=== PATIENT | male | born 1950 | race Caucasian/White ===

== ENCOUNTER 2018-08-12 14:40 | Emergency (ER) | payer MEDICAID, OTHER ==
[~2018-08-12] VITALS: Ht 177.8 cm; Wt 86.4 kg
[~2018-08-12 14:40] MED LIST: BENA40TA8 PO; DIGO250T77 PO; FLEC100T2 PO; HYDR25TA4 PO; WARF-55 PO; WARF-65 PO
[2018-08-12 15:00] VITALS: BP 145/86
[2018-08-13] MEDS ORDERED: DOXY100C43 PO (13:45)
== END 2018-08-12 21:08 | disposition left against medical advice (07) ==
LOC: ER 14:40
DX: M79.661 Pain in right lower leg (principal); Z53.21 Procedure and treatment not carried out due to patient leaving prior to being seen by health care provider; W22.8XXA Striking against or struck by other objects, initial encounter; Y93.89 Activity, other specified; Y92.89 Other specified places as the place of occurrence of the external cause; Y99.8 Other external cause status

== ENCOUNTER 2019-02-13 00:57 | Inpatient (IN) | payer MEDICARE, OTHER ==
[~2019-02-13] VITALS: Ht 177.8 cm; Wt 88.6 kg
[2019-02-13] VITALS (23 sets, daily range): BP systolic 108–183; BP diastolic 58–97
[2019-02-13] MEDS ORDERED: normal saline 1000ml 1,000 ML IVB ONE (01:08)
[2019-02-13] MEDS ORDERED: ondansetron/PF 4mg/2ml inj IV STA (01:08)
[2019-02-13] MEDS ORDERED: morphine 4 MG/ML inj SYRINge IV STA (01:09)
--- NOTE | 2019-02-13 01:09 | NUR ---
spoke to dr solano about firm abdomen and the pain pt. in.
[2019-02-13] MEDS ORDERED: CefTRIAXone 2gm/D5W 50ml 50 ML IV ONE ×2 (01:25→02:35)
[2019-02-13] MEDS ORDERED: azithromycin/NS 500mg/250ml 250 ML IV ONE (01:25)
[2019-02-13] MEDS ORDERED: nitroGLYCERIN 0.4mg/hour patch TD ONE (01:35)
[2019-02-13] MEDS ORDERED: morphine 4 MG/ML inj SYRINge IV ONE (01:35)
[2019-02-13 01:40] LABS: ALANINE AMINOTRANSFERASE 333 U/L (12-78); ALBUMIN 3.7 G/DL (3.4-5.0); ALKALINE PHOSPHATASE 154 IU/L (46-116); ANION GAP 11 (8-16); ASPARTATE AMINO TRANSFERASE 271 U/L (10-37); BILIRUBIN,TOTAL 1.5 MG/DL (0.1-1.0); BLOOD UREA NITROGEN 13 MG/DL (7-18); BUN/CREATININE RATIO 15.3 (5.4-32.0); CHLORIDE 106 MMOL/L (99-107); CREATININE 0.85 MG/DL (0.60-1.10); GLUCOSE 191 MG/DL (70-104); LIPASE 153 U/L (73-393); SODIUM 141 MMOL/L (135-145); TOTAL PROTEIN 7.3 G/DL (6.4-8.2); eGFR 90 ML/MIN
[2019-02-13] MEDS ORDERED: iohexol 350MG/ML 100ml bottle IV ONE (01:41)
[2019-02-13] MEDS ORDERED: ATOR40TA PO (03:21)
[2019-02-13 03:22] LABS: BASOPHILS # (AUTO) 0.1 X10'3 (0-0.2); BASOPHILS % (AUTO) 0.9 % (0-1); EOSINOPHILS % (AUTO) 0.6 % (0-6); HEMATOCRIT 48.8 % (42.0-52.0); HEMOGLOBIN 16.4 g/dl (14.0-17.9); LYMPHOCYTES # (AUTO) 1.2 X10'3 (1.1-4.8); LYMPHOCYTES % (AUTO) 15.5 % (21-51); MEAN CORPUSCULAR HEMOGLOBIN 31.2 PG (27.0-31.0); MEAN CORPUSCULAR HGB CONC 33.6 g/dL (33.0-36.5); MEAN CORPUSCULAR VOLUME 92.8 FL (78-98); MEAN PLATELET VOLUME 10.2 FL (7.4-10.4); MONOCYTES # (AUTO) 0.5 X10'3 (0-0.9); MONOCYTES % (AUTO) 7.3 % (2-12); NEUTROPHILS # (AUTO) 5.7 X10'3 (1.8-7.7); NEUTROPHILS % (AUTO) 75.7 % (42-75); PLATELET COUNT 105 X10'3 (140-440); RED BLOOD COUNT 5.26 X10'6 (4.70-6.10); RED CELL DISTRIBUTION WIDTH 14.5 % (11.5-14.5); WHITE BLOOD COUNT 7.5 X10'3 (4.5-11.0)
[2019-02-13] MEDS: normal saline 1000ml 1,000 ML IV SCH ×3 (03:48→23:34)
[2019-02-13] MEDS ORDERED: potassium Cl 20 mEq SR tablet PO PRN ×2 (03:50)
[2019-02-13] MEDS ORDERED: acetaminophen 650mg rectal suppository RC PRN (03:50)
[2019-02-13] MEDS ORDERED: ondansetron/PF 4mg/2ml inj IV PRN (03:50)
[2019-02-13] MEDS ORDERED: potassium CL 10mEq/100ml bag 100 ML IV PRN ×2 (03:50)
[2019-02-13] MEDS ORDERED: magnesium 2GM in 50ml NS 50 ML IV PRN (03:50)
[2019-02-13] MEDS ORDERED: morphine 2 MG/ML inj. syringe IV PRN ×2 (03:50)
[2019-02-13] MEDS ORDERED: magnesium 4gm in 100ml NS 100 ML IV PRN (03:50)
[2019-02-13] MEDS ORDERED: magnesium Cl slow-release 64mg tablet PO PRN (03:50)
--- NOTE | 2019-02-13 06:31 | NUR ---
Day shift UMBERTO Evans will be taking report on patient.
[2019-02-13] MEDS: K and/or MAG REPLACEMENT MC SCH (07:16)
[2019-02-13] MEDS: CefTRIAXone/D5W-Rocephin 1gm 50 ML IV SCH (07:34)
[2019-02-13] MEDS ORDERED: pantoprazole 40 MG vial IV SCH (08:00)
[2019-02-13] MEDS ORDERED: OMEG1CAP13 PO (09:40)
[2019-02-13] MEDS: ESOMEPRAZOLE 40 MG VIAL IV SCH (09:42)
--- NOTE | 2019-02-13 10:00 | NUR ---
patient stated not being able to void since midnight. Patient complains of feeling the need to urinate but not being able to. PCT bladder scanned patient and 600 mL of urine is present in bladder. informed and an order for one time straight cath was given. Attempt to straight cath was made. Patient complained of extreme pain during. catheter was pulled back slightly and readvanced and patient still complains of pain. No urine return. Charge nurse informed and will attempt.
[2019-02-13 10:19] LABS: ALANINE AMINOTRANSFERASE 541 U/L (12-78); ALKALINE PHOSPHATASE 138 IU/L (46-116); ANION GAP 10 (8-16); ASPARTATE AMINO TRANSFERASE 415 U/L (10-37); BILIRUBIN,TOTAL 2.2 MG/DL (0.1-1.0); BLOOD UREA NITROGEN 15 MG/DL (7-18); BUN/CREATININE RATIO 20.8 (5.4-32.0); CALCIUM 7.9 MG/DL (8.5-10.1); CHLORIDE 111 MMOL/L (99-107); CREATININE 0.72 MG/DL (0.60-1.10); GLUCOSE 95 MG/DL (70-104); POTASSIUM 4.5 MMOL/L (3.5-5.1); SODIUM 141 MMOL/L (135-145); TOTAL CARBON DIOXIDE 20.4 MMOL/L (24-32); TOTAL PROTEIN 6.1 G/DL (6.4-8.2); eGFR > 90 ML/MIN
[2019-02-13] MEDS ORDERED: phytonadione inj. 10 MG in normal saline 100ml IV soln 99 ML IV ONE (10:45)
--- NOTE | 2019-02-13 10:46 | NUR ---
Discussed with pt that I would try to straight cath him. Pt still unable to void and per bladder scan has 600 in bladder. Pt refusing another attempt due to the pain experienced with the last attempt to insert st. cath. Will check back with pt in about 30 minutes.
--- NOTE | 2019-02-13 13:00 | NUR ---
Patient still refusing to have straight cath done. Patient encourage to walk a lap around the unit and then try to void again. Patient did and came back to room and was able to void 650 mL of urine. Patient stated feeling much better. Will continue to monitor urine output.
[2019-02-13] MEDS ORDERED: fentaNYL/PF 50MCG/1 ML 2ML syringe ONE (15:10)
[2019-02-13] MEDS ORDERED: diphenhydrAMINE 50 mg/ml inj ONE (15:10)
[2019-02-13] MEDS ORDERED: MIDAZolam 5mg/5ml vial ONE ×2 (15:10→15:15)
[2019-02-13] MEDS ORDERED: glucagon, human recombinant 1mg kit ONE (15:11)
[2019-02-13] MEDS ORDERED: iohexol 300 MG/1 ML 50ml polymer ONE (15:11)
[2019-02-13] MEDS ORDERED: LIDOcaine Viscous 15ml cup ONE (15:11)
--- NOTE | 2019-02-13 16:09 | NUR ---
Patient to GI lab via wheelchair and taken from unit with x1 staff. patient alert, oriented and in no apparent distress at this time.
--- NOTE | 2019-02-13 18:13 | NUR ---
Problems reprioritized. Patient report given, questions answered & plan of care reviewed with UMBERTO Dunham. Patient still in GI lab at this time.
--- NOTE | 2019-02-13 18:15 | NUR ---
Patient in room [facility]. I have received report from Cristina SHIPMAN and had the opportunity to ask questions and assume patient care. Patient remains down in the GI lab at this time.
[2019-02-13] MEDS ORDERED: naloxone 0.4 mg/ml inj ONE (18:18)
[2019-02-13] MEDS ORDERED: levoFLOXACIN-Levaquin 500mg/D5 100 ML IV ONE (18:25)
--- NOTE | 2019-02-13 19:15 | NUR ---
Patient now on a clear liquid diet and given 2 x apple juice box. Addendum: 02/13/19 at 2205 by Charla Banuelos RN Amended: Links added.
--- NOTE | 2019-02-13 19:15 | NUR ---
Patient back from GI lab and now in the bathroom try to void.
--- NOTE | 2019-02-13 19:30 | NUR ---
At 1930, patient received a dose of 1mg/0.5ml MS and the other half was wasted with a cosigner RN. Unfortunately, forgot to scan the MS and so does not show on this e-mar, but is showing in the omnicell.
[2019-02-13] MEDS: lactobacillus rhamnosus 10,000 MMU CELLS/CAPSULE PO SCH (19:39)
[2019-02-13] MEDS: omega-3 acid ethyl esters 1GM capsule PO SCH (19:39)
[2019-02-13] MEDS ORDERED: FLECAINIDE ACETATE PO SCH (20:00)
[2019-02-13] MEDS ORDERED: FATTY ACIDS PO SCH (20:00)
[2019-02-13] MEDS ORDERED: FISH OIL PO SCH (20:00)
[2019-02-13] MEDS ORDERED: OMEGA PO SCH (20:00)
[2019-02-13] MEDS: flecainide 50mg tablet PO SCH (20:41)
[2019-02-13] MEDS: warfarin 5mg tablet PO SCH (20:41)
[2019-02-14] VITALS: BP 167/81
[2019-02-14] MEDS ORDERED: HYDROmorphone 2mg/ml vial IV PRN ×2
[2019-02-14] MEDS ORDERED: HYDROmorphone 1 mg/ml syringe IV PRN (00:11)
--- NOTE | 2019-02-14 00:33 | NUR ---
Patient awoke earlier around 2330 in a lot of pain stating 8-9 to abdomen as well as his head. Gave morphine for pain and then patient 5 minutes later started feeling nauseated and heaving. Gave zofran for nausea. Patient was wondering if the morphine was causing the headache, and so requested a different pain medication from the MD. Zofran help with the nausea, and patient stated that he would wait until the next time to have the dilaudid pain medication if needed.
[2019-02-14] MEDS: HYDROmorphone 1 mg/ml syringe IV PRN ×3 (02:04→15:47)
[2019-02-14 03:20] VITALS: BP 135/76
--- NOTE | 2019-02-14 05:15 | NUR ---
Patients' called again (first time 2109) to check in on her and expressed her gratitude to everyone for looking after him. Wanted nursing to let him know that she will be in later on this morning. Patient currently sleeping, passed message on to day nurse.
[2019-02-14 05:23] LABS: BASOPHILS % (AUTO) 0.3 % (0-1); EOSINOPHILS % (AUTO) 0 % (0-6); HEMATOCRIT 42.2 % (42.0-52.0); HEMOGLOBIN 14.2 g/dl (14.0-17.9); LYMPHOCYTES # (AUTO) 0.6 X10'3 (1.1-4.8); MEAN CORPUSCULAR HEMOGLOBIN 31.2 PG (27.0-31.0); MEAN CORPUSCULAR HGB CONC 33.7 g/dL (33.0-36.5); MEAN CORPUSCULAR VOLUME 92.5 FL (78-98); MEAN PLATELET VOLUME 10.1 FL (7.4-10.4); MONOCYTES # (AUTO) 0.5 X10'3 (0-0.9); MONOCYTES % (AUTO) 7.9 % (2-12); NEUTROPHILS # (AUTO) 5.6 X10'3 (1.8-7.7); NEUTROPHILS % (AUTO) 82.8 % (42-75); PLATELET COUNT 96 X10'3 (140-440); RED BLOOD COUNT 4.56 X10'6 (4.70-6.10); RED CELL DISTRIBUTION WIDTH 14.6 % (11.5-14.5); WHITE BLOOD COUNT 6.8 X10'3 (4.5-11.0)
[2019-02-14 05:49] LABS: ALANINE AMINOTRANSFERASE 489 U/L (12-78); ALBUMIN 3.1 G/DL (3.4-5.0); ALKALINE PHOSPHATASE 179 IU/L (46-116); ANION GAP 9 (8-16); ASPARTATE AMINO TRANSFERASE 248 U/L (10-37); BILIRUBIN,TOTAL 5.7 MG/DL (0.1-1.0); CALCIUM 8.2 MG/DL (8.5-10.1); CHLORIDE 108 MMOL/L (99-107); CREATININE 0.67 MG/DL (0.60-1.10); GLUCOSE 115 MG/DL (70-104); MAGNESIUM 1.6 MG/DL (1.5-2.4); POTASSIUM 4.1 MMOL/L (3.5-5.1); SODIUM 141 MMOL/L (135-145); TOTAL CARBON DIOXIDE 23.8 MMOL/L (24-32); eGFR > 90 ML/MIN
[2019-02-14 06:22] LABS: BLOOD UREA NITROGEN 9 MG/DL (7-18); BUN/CREATININE RATIO 13.4 (5.4-32.0)
[2019-02-14 06:23] LABS: ALBUMIN/GLOBULIN RATIO 0.9 (1.1-1.5); TOTAL PROTEIN 6.4 G/DL (6.4-8.2)
--- NOTE | 2019-02-14 06:45 | NUR ---
Patient in room [facility]. I have received report from UMBERTO Dunham and had the opportunity to ask questions and assume patient care.
--- NOTE | 2019-02-14 06:48 | NUR ---
Problems reprioritized. Patient report given, questions answered & plan of care reviewed with Cristina mazariegos.
[2019-02-14 07:00] VITALS: BP 177/101
[2019-02-14] MEDS: K and/or MAG REPLACEMENT MC SCH (07:06)
[2019-02-14] MEDS: ESOMEPRAZOLE 40 MG VIAL IV SCH (07:45)
[2019-02-14] MEDS: CefTRIAXone/D5W-Rocephin 1gm 50 ML IV SCH (07:45)
[2019-02-14] MEDS: flecainide 50mg tablet PO SCH ×2 (07:46→20:15)
[2019-02-14] MEDS: omega-3 acid ethyl esters 1GM capsule PO SCH ×2 (07:46→20:14)
[2019-02-14] MEDS: lactobacillus rhamnosus 10,000 MMU CELLS/CAPSULE PO SCH ×2 (07:46→20:14)
[2019-02-14] MEDS: atorvastatin 20mg tablet PO SCH (07:46)
[2019-02-14] MEDS: lisinopril 20mg tablet PO SCH (07:46)
[2019-02-14] MEDS ORDERED: BENAZEPRIL HCL PO SCH (08:00)
[2019-02-14] MEDS ORDERED: non-formulary drug (Atorvastatin Calcium* (Lipitor*) 1 TAB) PO SCH (08:00)
[2019-02-14] MEDS: normal saline 1000ml 1,000 ML IV SCH ×2 (10:30→20:14)
[2019-02-14 11:00] VITALS: BP 164/95
--- NOTE | 2019-02-14 18:21 | NUR ---
Problems reprioritized. Patient report given, questions answered & plan of care reviewed with UMBERTO Person.
[2019-02-14 20:00] VITALS: BP 159/84
[2019-02-14] MEDS: warfarin 5mg tablet PO SCH (20:15)
--- NOTE | 2019-02-14 20:52 | NUR ---
Patient in room [facility] 354. I have received report from UMBERTO Evans and had the opportunity to ask questions and assume patient care. Addendum: 02/14/19 at 2051 by Shahla Varela RN Amended: Links added.
[2019-02-15] VITALS: BP 135/83
[2019-02-15] MEDS: HYDROmorphone 1 mg/ml syringe IV PRN (00:07)
[2019-02-15 05:22] LABS: BASOPHILS % (AUTO) 0.6 % (0-1); EOSINOPHILS # (AUTO) 0.1 X10'3 (0-0.9); EOSINOPHILS % (AUTO) 1.3 % (0-6); HEMATOCRIT 40.5 % (42.0-52.0); HEMOGLOBIN 13.7 g/dl (14.0-17.9); LYMPHOCYTES # (AUTO) 1.3 X10'3 (1.1-4.8); LYMPHOCYTES % (AUTO) 22.4 % (21-51); MEAN CORPUSCULAR HEMOGLOBIN 31.3 PG (27.0-31.0); MEAN CORPUSCULAR HGB CONC 33.9 g/dL (33.0-36.5); MEAN CORPUSCULAR VOLUME 92.5 FL (78-98); MEAN PLATELET VOLUME 9.8 FL (7.4-10.4); MONOCYTES # (AUTO) 0.6 X10'3 (0-0.9); MONOCYTES % (AUTO) 9.7 % (2-12); NEUTROPHILS # (AUTO) 3.8 X10'3 (1.8-7.7); PLATELET COUNT 88 X10'3 (140-440); RED BLOOD COUNT 4.37 X10'6 (4.70-6.10); RED CELL DISTRIBUTION WIDTH 14.6 % (11.5-14.5); WHITE BLOOD COUNT 5.7 X10'3 (4.5-11.0)
[2019-02-15] MEDS: normal saline 1000ml 1,000 ML IV SCH (05:36)
[2019-02-15 05:40] LABS: ALANINE AMINOTRANSFERASE 337 U/L (12-78); ALBUMIN 2.8 G/DL (3.4-5.0); ALBUMIN/GLOBULIN RATIO 0.9 (1.1-1.5); ALKALINE PHOSPHATASE 178 IU/L (46-116); ANION GAP 8 (8-16); ASPARTATE AMINO TRANSFERASE 102 U/L (10-37); BILIRUBIN,TOTAL 2.1 MG/DL (0.1-1.0); BLOOD UREA NITROGEN 9 MG/DL (7-18); BUN/CREATININE RATIO 12.3 (5.4-32.0); CHLORIDE 108 MMOL/L (99-107); CREATININE 0.73 MG/DL (0.60-1.10); GLUCOSE 107 MG/DL (70-104); MAGNESIUM 1.6 MG/DL (1.5-2.4); POTASSIUM 3.9 MMOL/L (3.5-5.1); SODIUM 141 MMOL/L (135-145); TOTAL CARBON DIOXIDE 24.9 MMOL/L (24-32); eGFR > 90 ML/MIN
--- NOTE | 2019-02-15 06:13 | NUR ---
Problems reprioritized. Patient report given, questions answered & plan of care reviewed with UMBERTO Evans. Addendum: 02/15/19 at 0613 by Shahla Varela RN Amended: Links added.
--- NOTE | 2019-02-15 06:15 | NUR ---
Patient in room [facility]. I have received report from UMBERTO Person and had the opportunity to ask questions and assume patient care.
[2019-02-15 07:00] VITALS: BP_SYST 167; BP_SYST 175; BP_DIAS 100; BP_DIAS 98
[2019-02-15] MEDS: K and/or MAG REPLACEMENT MC SCH (07:57)
[2019-02-15] MEDS: lactobacillus rhamnosus 10,000 MMU CELLS/CAPSULE PO SCH (08:00)
[2019-02-15] MEDS: CefTRIAXone/D5W-Rocephin 1gm 50 ML IV SCH (08:00)
[2019-02-15] MEDS: ESOMEPRAZOLE 40 MG VIAL IV SCH (08:00)
[2019-02-15 08:47] VITALS: BP_SYST 167
[2019-02-15] MEDS: flecainide 50mg tablet PO SCH (08:47)
[2019-02-15] MEDS: lisinopril 20mg tablet PO SCH (08:47)
[2019-02-15] MEDS: atorvastatin 20mg tablet PO SCH (08:47)
[2019-02-15] MEDS: omega-3 acid ethyl esters 1GM capsule PO SCH (08:47)
--- NOTE | 2019-02-15 09:45 | NUR ---
Patient discharged home and taken from unit via wheelchair with x1 staff. patient alert oriented and in no apparent distress at time of discharge. PIV removed with cannula intact. All belongings left with patient including discharge instructions. Patient was given time for questions and answers and stated an understanding of the discharge instructions.
== END 2019-02-15 09:54 | disposition home or self-care (01) | DRG 446 ==
LOC: ER 00:57 → SUR 3N 07:03
PROVIDERS: ADMIT Internal Medicine; ATTEND Internal Medicine
PROC: 0FC98ZZ Extirpation of Matter from Common Bile Duct, Via Natural or Artificial Opening Endoscopic (ICD-10-PCS; principal; 2019-02-13)
PROC: BF101ZZ Fluoroscopy of Bile Ducts using Low Osmolar Contrast (ICD-10-PCS; 2019-02-13)
PROC: 30233K1 Transfusion of Nonautologous Frozen Plasma into Peripheral Vein, Percutaneous Approach (ICD-10-PCS; 2019-02-13)
PROC: B4201ZZ Computerized Tomography (CT Scan) of Abdominal Aorta using Low Osmolar Contrast (ICD-10-PCS; 2019-02-13)
PROC: B4241ZZ Computerized Tomography (CT Scan) of Superior Mesenteric Artery using Low Osmolar Contrast (ICD-10-PCS; 2019-02-13)
PROC: B4281ZZ Computerized Tomography (CT Scan) of Bilateral Renal Arteries using Low Osmolar Contrast (ICD-10-PCS; 2019-02-13)
PROC: B42C1ZZ Computerized Tomography (CT Scan) of Pelvic Arteries using Low Osmolar Contrast (ICD-10-PCS; 2019-02-13)
PROC: B4211ZZ Computerized Tomography (CT Scan) of Celiac Artery using Low Osmolar Contrast (ICD-10-PCS; 2019-02-13)
DX: K80.50 Calculus of bile duct without cholangitis or cholecystitis without obstruction (principal); I50.9 Heart failure, unspecified; E78.5 Hyperlipidemia, unspecified; I11.0 Hypertensive heart disease with heart failure; I48.0 Paroxysmal atrial fibrillation; R74.0 Nonspecific elevation of levels of transaminase and lactic acid dehydrogenase [LDH]; R74.8 Abnormal levels of other serum enzymes; Z79.899 Other long term (current) drug therapy; Z90.49 Acquired absence of other specified parts of digestive tract; G44.40 Drug-induced headache, not elsewhere classified, not intractable; T40.605A Adverse effect of unspecified narcotics, initial encounter; Y92.238 Other place in hospital as the place of occurrence of the external cause
CPT/HCPCS: 36415; 43262; 43264; 43274; 71045; 74174; 80053; 83605; 83690; 83735; 84145; 85025; 85610; 86885; 86900; 86901; 87040; 87081; 93005; 96374; 96375; 96376; 99152; 99153; 99285; A4620; C1769; G0378; J0456; J0696; J1170; J1200; J1610; J1956; J2250; J2270; J2310; J2405; J3010; J3430; J7030; J7040; P9059; Q9967

== ENCOUNTER 2019-03-02 08:10 | Day surgery (SDC) | payer MEDICARE ==
[2019-03-02] VITALS (8 sets, daily range): BP systolic 100–145; BP diastolic 55–84
[~2019-03-02] VITALS: Ht 177.8 cm; Wt 190.0 kg
[~2019-03-02 08:10] MED LIST changes: +ATOR40TA PO; -DIGO250T77 PO; -HYDR25TA4 PO; +OMEG1CAP13 PO; -WARF-65 PO
[2019-03-02] MEDS ORDERED: fentaNYL/PF 50MCG/1 ML 2ML syringe ONE (08:41)
[2019-03-02] MEDS ORDERED: MIDAZolam 5mg/5ml vial ONE (08:42)
[2019-03-02] MEDS ORDERED: glucagon, human recombinant 1mg kit ONE (08:42)
[2019-03-02] MEDS ORDERED: LIDOcaine Viscous 15ml cup ONE (08:42)
[2019-03-02] MEDS ORDERED: diphenhydrAMINE 50 mg/ml inj ONE (08:42)
[2019-03-02] MEDS ORDERED: iohexol 300 MG/1 ML 50ml polymer ONE (08:43)
[2019-03-02 08:56] LABS: BASOPHILS # (AUTO) 0.1 X10'3 (0-0.2); BASOPHILS % (AUTO) 1.3 % (0-1); EOSINOPHILS # (AUTO) 0.1 X10'3 (0-0.9); HEMATOCRIT 49.6 % (42.0-52.0); HEMOGLOBIN 16.8 g/dl (14.0-17.9); LYMPHOCYTES # (AUTO) 1.3 X10'3 (1.1-4.8); LYMPHOCYTES % (AUTO) 21.3 % (21-51); MEAN CORPUSCULAR HEMOGLOBIN 31.2 PG (27.0-31.0); MEAN CORPUSCULAR HGB CONC 33.9 g/dL (33.0-36.5); MEAN CORPUSCULAR VOLUME 92.1 FL (78-98); MONOCYTES # (AUTO) 0.5 X10'3 (0-0.9); MONOCYTES % (AUTO) 7.6 % (2-12); NEUTROPHILS # (AUTO) 4.3 X10'3 (1.8-7.7); NEUTROPHILS % (AUTO) 68.8 % (42-75); PLATELET COUNT 133 X10'3 (140-440); RED BLOOD COUNT 5.39 X10'6 (4.70-6.10); RED CELL DISTRIBUTION WIDTH 14.2 % (11.5-14.5); WHITE BLOOD COUNT 6.3 X10'3 (4.5-11.0)
[2019-03-02 09:12] LABS: ALANINE AMINOTRANSFERASE 63 U/L (12-78); ALBUMIN 3.6 G/DL (3.4-5.0); ALKALINE PHOSPHATASE 109 IU/L (46-116); ANION GAP 8 (8-16); ASPARTATE AMINO TRANSFERASE 25 U/L (10-37); BILIRUBIN,TOTAL 0.8 MG/DL (0.1-1.0); BLOOD UREA NITROGEN 15 MG/DL (7-18); BUN/CREATININE RATIO 18.3 (5.4-32.0); CALCIUM 9.3 MG/DL (8.5-10.1); CHLORIDE 107 MMOL/L (99-107); CREATININE 0.82 MG/DL (0.60-1.10); GLUCOSE 102 MG/DL (70-104); LIPASE 110 U/L (73-393); POTASSIUM 4.3 MMOL/L (3.5-5.1); SODIUM 140 MMOL/L (135-145); TOTAL CARBON DIOXIDE 24.6 MMOL/L (24-32); TOTAL PROTEIN 7.2 G/DL (6.4-8.2); eGFR > 90 ML/MIN
[2019-03-02] MEDS ORDERED: levoFLOXACIN-Levaquin 500mg/D5 100 ML IV ONE (10:24)
== END 2019-03-02 11:40 | disposition home or self-care (01) ==
LOC: GI LAB 08:10
PROVIDERS: ATTEND Internal Medicine Gastroenterology
DX: K80.50 Calculus of bile duct without cholangitis or cholecystitis without obstruction (principal); I48.91 Unspecified atrial fibrillation; Z79.899 Other long term (current) drug therapy
CPT/HCPCS: 36415; 43264; 43275; 74176; 80053; 83690; 85025; 85610; C1769; C1773; G0500; J1200; J1610; J1956; J2250; J3010; J7040; Q9967; 99152; A4620

== ENCOUNTER 2021-02-16 09:23 | Emergency (ER) | payer MEDICARE, OTHER ==
[~2021-02-16] VITALS: Ht 177.8 cm; Wt 94.5 kg
[2021-02-16 10:14] LABS: BASOPHILS % (AUTO) 0.8 % (0-1); EOSINOPHILS # (AUTO) 0.1 X10'3 (0-0.9); EOSINOPHILS % (AUTO) 1.5 % (0-6); HEMATOCRIT 45.6 % (42.0-52.0); HEMOGLOBIN 15.5 g/dl (14.0-17.9); LYMPHOCYTES # (AUTO) 1.3 X10'3 (1.1-4.8); LYMPHOCYTES % (AUTO) 23.4 % (21-51); MEAN CORPUSCULAR HEMOGLOBIN 32.1 PG (27.0-31.0); MEAN CORPUSCULAR HGB CONC 33.9 g/dL (33.0-36.5); MEAN CORPUSCULAR VOLUME 94.8 FL (78-98); MEAN PLATELET VOLUME 9.9 FL (7.4-10.4); MONOCYTES # (AUTO) 0.4 X10'3 (0-0.9); MONOCYTES % (AUTO) 7.7 % (2-12); NEUTROPHILS # (AUTO) 3.6 X10'3 (1.8-7.7); NEUTROPHILS % (AUTO) 66.6 % (42-75); PLATELET COUNT 107 X10'3 (140-440); RED BLOOD COUNT 4.81 X10'6 (4.70-6.10); RED CELL DISTRIBUTION WIDTH 14.4 % (11.5-14.5); WHITE BLOOD COUNT 5.4 X10'3 (4.5-11.0)
[2021-02-16 10:22] LABS: PARTIAL THROMBOPLASTIN TIME 44 SECONDS (22-32)
[2021-02-16 10:26] LABS: ALANINE AMINOTRANSFERASE 56 U/L (12-78); ALBUMIN 3.8 G/DL (3.4-5.0); ALBUMIN/GLOBULIN RATIO 1.1 (1.1-1.5); ALKALINE PHOSPHATASE 76 IU/L (46-116); ANION GAP 7 (8-16); ASPARTATE AMINO TRANSFERASE 31 U/L (10-37); BILIRUBIN,TOTAL 0.9 MG/DL (0.1-1.0); BLOOD UREA NITROGEN 14 MG/DL (7-18); BUN/CREATININE RATIO 16.5 (5.4-32.0); CALCIUM 8.7 MG/DL (8.5-10.1); CHLORIDE 108 MMOL/L (99-107); CREATININE 0.85 MG/DL (0.60-1.10); GLUCOSE 106 MG/DL (70-104); POTASSIUM 4.5 MMOL/L (3.5-5.1); SODIUM 143 MMOL/L (135-145); TOTAL CARBON DIOXIDE 27.8 MMOL/L (24-32); TOTAL PROTEIN 7.2 G/DL (6.4-8.2); eGFR 89 ML/MIN
[2021-02-16 10:37] LABS: MAGNESIUM 1.7 MG/DL (1.5-2.4)
--- NOTE | 2021-02-16 11:15 | NUR ---
Pt given and understands d/c instructions. Ambulatory with a steady gait.
[2021-02-16 11:23] VITALS: BP 125/74
== END 2021-02-16 11:15 | disposition home or self-care (01) ==
LOC: ER 09:24
DX: R00.1 Bradycardia, unspecified (principal); R42 Dizziness and giddiness; R53.83 Other fatigue; I48.91 Unspecified atrial fibrillation; I11.0 Hypertensive heart disease with heart failure; I50.9 Heart failure, unspecified; Z90.49 Acquired absence of other specified parts of digestive tract; Z79.899 Other long term (current) drug therapy; Z79.01 Long term (current) use of anticoagulants
CPT/HCPCS: 36415; 71045; 80053; 83735; 83880; 84484; 85025; 85610; 85730; 93005; 99285

== ENCOUNTER 2021-02-19 10:38 | Inpatient (IN) | payer OTHER ==
[~2021-02-19] VITALS: Ht 177.8 cm; Wt 95.0 kg
[2021-02-19 11:27] LABS: BASOPHILS % (AUTO) 0.8 % (0-1); EOSINOPHILS # (AUTO) 0.1 X10'3 (0-0.9); EOSINOPHILS % (AUTO) 1.2 % (0-6); HEMATOCRIT 46.3 % (42.0-52.0); HEMOGLOBIN 15.6 g/dl (14.0-17.9); LYMPHOCYTES # (AUTO) 1.3 X10'3 (1.1-4.8); MEAN CORPUSCULAR HEMOGLOBIN 31.8 PG (27.0-31.0); MEAN CORPUSCULAR HGB CONC 33.6 g/dL (33.0-36.5); MEAN CORPUSCULAR VOLUME 94.6 FL (78-98); MEAN PLATELET VOLUME 9.6 FL (7.4-10.4); MONOCYTES # (AUTO) 0.5 X10'3 (0-0.9); MONOCYTES % (AUTO) 8.7 % (2-12); NEUTROPHILS # (AUTO) 3.4 X10'3 (1.8-7.7); NEUTROPHILS % (AUTO) 64.3 % (42-75); PLATELET COUNT 106 X10'3 (140-440); RED CELL DISTRIBUTION WIDTH 14.4 % (11.5-14.5); WHITE BLOOD COUNT 5.3 X10'3 (4.5-11.0)
[2021-02-19 11:42] LABS: ALANINE AMINOTRANSFERASE 46 U/L (12-78); ALBUMIN 3.7 G/DL (3.4-5.0); ALBUMIN/GLOBULIN RATIO 1.1 (1.1-1.5); ALKALINE PHOSPHATASE 79 IU/L (46-116); ANION GAP 8 (8-16); ASPARTATE AMINO TRANSFERASE 23 U/L (10-37); BILIRUBIN,TOTAL 0.8 MG/DL (0.1-1.0); BLOOD UREA NITROGEN 14 MG/DL (7-18); BUN/CREATININE RATIO 18.4 (5.4-32.0); CALCIUM 8.7 MG/DL (8.5-10.1); CHLORIDE 110 MMOL/L (99-107); CREATININE 0.76 MG/DL (0.60-1.10); GLUCOSE 113 MG/DL (70-104); POTASSIUM 4.1 MMOL/L (3.5-5.1); SODIUM 145 MMOL/L (135-145); TOTAL CARBON DIOXIDE 26.8 MMOL/L (24-32); TOTAL PROTEIN 7.2 G/DL (6.4-8.2); eGFR > 90 ML/MIN
[2021-02-19 11:49] LABS: MAGNESIUM 1.8 MG/DL (1.5-2.4)
[2021-02-19] MEDS ORDERED: heparin 10,000 units/1 ML INJ IV ONE ×2 (17:00→17:05)
[2021-02-19] MEDS ORDERED: heparin 25,000 UNIT/250ml bag 250 ML IV SCH (17:00)
[2021-02-19] MEDS ORDERED: heparin 10,000 units/1 ML INJ IV PRN (17:00)
[2021-02-19 17:31] LABS: PARTIAL THROMBOPLASTIN TIME 43 SECONDS (22-32)
[2021-02-19] MEDS ORDERED: regadenoson 0.4mg/5ml syringe IV PRN (18:05)
[2021-02-19] MEDS ORDERED: acetaminophen 325mg tablet PO PRN ×2 (18:05)
[2021-02-19] MEDS ORDERED: magnesium hydroxide 30ml (MOM) UD suspension PO PRN (18:05)
[2021-02-19] MEDS ORDERED: nitroGLYCERIN 0.4mg SUBLingual tab SL PRN (18:05)
[2021-02-19] MEDS ORDERED: morphine 2 MG/ML inj. syringe IV PRN ×2 (18:05)
[2021-02-19] MEDS ORDERED: magnesium 4gm in 100ml NS 100 ML IV PRN (18:05)
[2021-02-19] MEDS ORDERED: bisacodyl 10mg suppository rectal RC PRN (18:05)
[2021-02-19] MEDS ORDERED: acetaminophen 650mg rectal suppository RC PRN (18:05)
[2021-02-19] MEDS ORDERED: ondansetron/PF 4mg/2ml inj IV PRN (18:05)
[2021-02-19] MEDS ORDERED: mag hydrox/Alum hydrox/simeth 30ml oral suspension PO PRN (18:05)
[2021-02-19] MEDS ORDERED: HYDROcodone/acetaminophen 5mg/325mg tablet PO PRN (18:05)
[2021-02-19] MEDS ORDERED: potassium Cl 20 mEq SR tablet PO PRN ×2 (18:05)
[2021-02-19] MEDS ORDERED: magnesium 2GM in 50ml NS 50 ML IV PRN (18:05)
[2021-02-19] MEDS ORDERED: aminophylline 250mg/10ml inj. IV PRN (18:05)
[2021-02-19] MEDS ORDERED: HYDROcodone/acetaminophen 10/325mg tab PO PRN (18:05)
[2021-02-19] MEDS ORDERED: metoprolol tartrate 1mg/ml inj IV PRN (18:05)
[2021-02-19] MEDS ORDERED: magnesium Cl slow-release 64mg tablet PO PRN (18:05)
[2021-02-19] MEDS ORDERED: potassium Cl 40MEQ/1/2NS 520ml 520 ML IV PRN ×2 (18:05)
[2021-02-19 19:00] LABS: HEMOGLOBIN A1C 5.8 % (4.5-6.2)
[2021-02-19 19:02] LABS: CLARITY,URINE CLEAR (Clear); COLOR,URINE YELLOW (Yellow); GLUCOSE, URINE NEGATIVE (Neg); KETONES,URINE NEGATIVE (Neg); LEUKOCYTE ESTERASE ,URINE NEGATIVE (Neg); NITRITES, URINE NEGATIVE (Neg); OCCULT BLOOD,URINE NEGATIVE (Neg); PROTEIN,URINE NEGATIVE (Neg); UROBILINOGEN,URINE 0.2 E.U/dL (0.2-1.0)
[2021-02-19 19:04] LABS: UA COLLECTION TYPE CLN CATCH MIDSTREAM
[2021-02-19 19:06] LABS: TROPONIN I 0.15 NG/ML (0.0-0.05)
--- NOTE | 2021-02-19 19:06 | NUR ---
PROVIDED MEAL TRAY. PT REPOTS MINIMAL HUNGER AT THIS TIME. VSS. CONTINUES N HEPARIN GTT. AWAITING IPA.
[2021-02-19 20:00] VITALS: BP 157/82
[2021-02-19] MEDS: K and/or MAG REPLACEMENT MC SCH (20:00)
[2021-02-19] MEDS ORDERED: warfarin 5mg tablet PO ONE (21:00)
[2021-02-19 22:00] VITALS: BP 117/78
[2021-02-19] MEDS: docusate sod 100mg capsule PO SCH (22:38)
[2021-02-19] MEDS: normal saline 1000ml 1,000 ML IV SCH (22:40)
[2021-02-20] VITALS (13 sets, daily range): BP systolic 96–181; BP diastolic 51–100
[2021-02-20 02:19] LABS: BASOPHILS # (AUTO) 0.1 X10'3 (0-0.2); BASOPHILS % (AUTO) 1.2 % (0-1); EOSINOPHILS # (AUTO) 0.1 X10'3 (0-0.9); EOSINOPHILS % (AUTO) 1.3 % (0-6); HEMATOCRIT 43.4 % (42.0-52.0); HEMOGLOBIN 14.6 g/dl (14.0-17.9); LYMPHOCYTES # (AUTO) 1.6 X10'3 (1.1-4.8); LYMPHOCYTES % (AUTO) 29.2 % (21-51); MEAN CORPUSCULAR HEMOGLOBIN 31.8 PG (27.0-31.0); MEAN CORPUSCULAR HGB CONC 33.6 g/dL (33.0-36.5); MEAN CORPUSCULAR VOLUME 94.5 FL (78-98); MEAN PLATELET VOLUME 10.3 FL (7.4-10.4); MONOCYTES # (AUTO) 0.4 X10'3 (0-0.9); MONOCYTES % (AUTO) 7.2 % (2-12); NEUTROPHILS # (AUTO) 3.4 X10'3 (1.8-7.7); NEUTROPHILS % (AUTO) 61.1 % (42-75); PLATELET COUNT 107 X10'3 (140-440); RED BLOOD COUNT 4.59 X10'6 (4.70-6.10); RED CELL DISTRIBUTION WIDTH 14.2 % (11.5-14.5); WHITE BLOOD COUNT 5.6 X10'3 (4.5-11.0)
[2021-02-20 02:33] LABS: ALANINE AMINOTRANSFERASE 39 U/L (12-78); ALBUMIN 3.3 G/DL (3.4-5.0); ALBUMIN/GLOBULIN RATIO 1.1 (1.1-1.5); ALKALINE PHOSPHATASE 78 IU/L (46-116); ANION GAP 8 (8-16); ASPARTATE AMINO TRANSFERASE 20 U/L (10-37); BILIRUBIN,TOTAL 0.7 MG/DL (0.1-1.0); BLOOD UREA NITROGEN 15 MG/DL (7-18); BUN/CREATININE RATIO 18.8 (5.4-32.0); CALCIUM 8.2 MG/DL (8.5-10.1); CHLORIDE 111 MMOL/L (99-107); CHOL/HDL RATIO 3.9 (0.00-4.99); CHOLESTEROL 136 MG/DL (0-200); GLUCOSE 105 MG/DL (70-104); HDL CHOLESTEROL 35 MG/DL (35-60); LDL CHOLESTEROL 67 MG/DL (50-100); MAGNESIUM 1.6 MG/DL (1.5-2.4); PHOSPHORUS 4.3 MG/DL (2.3-4.5); SODIUM 144 MMOL/L (135-145); TOTAL CARBON DIOXIDE 25.5 MMOL/L (24-32); TOTAL PROTEIN 6.3 G/DL (6.4-8.2); TRIGLYCERIDES 341 MG/DL (20-135); TROPONIN I 0.11 NG/ML (0.0-0.05); eGFR > 90 ML/MIN
--- NOTE | 2021-02-20 06:00 | NUR ---
Patient in room PCU 3012. I have received report from Anne SHIPMAN and had the opportunity to ask questions and assume patient care.
[2021-02-20] MEDS: normal saline 1000ml 1,000 ML IV SCH (07:25)
[2021-02-20] MEDS: K and/or MAG REPLACEMENT MC SCH ×2 (08:00→20:00)
--- NOTE | 2021-02-20 09:00 | NUR ---
to nancy, alize, nat 50's, a/ox3
--- NOTE | 2021-02-20 11:45 | NUR ---
Still in Nuc med
[2021-02-20] MEDS: atorvastatin 20mg tablet PO SCH (13:00)
[2021-02-20] MEDS: docusate sod 100mg capsule PO SCH ×2 (13:00→21:20)
[2021-02-20] MEDS: lisinopril 20mg tablet PO SCH (13:00)
[2021-02-20] MEDS ORDERED: WARF3TAB56 PO (14:56)
[2021-02-20] MEDS ORDERED: WARF6TAB49 PO (14:56)
--- NOTE | 2021-02-20 16:43 | NUR ---
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 Awaiting response
--- NOTE | 2021-02-20 18:42 | NUR ---
Patient in room PCU 3012. I have received report from Tonny SHIPMAN and had the opportunity to ask questions and assume patient care.
[2021-02-20] MEDS ORDERED: warfarin 5mg tablet PO SCH (21:00)
[2021-02-20] MEDS ORDERED: warfarin 3mg tablet PO SCH (21:00)
[2021-02-20] MEDS ORDERED: warfarin 5mg tablet PO ONE (21:00)
[2021-02-20] MEDS: OMEGA-3/DHA/EPA/FISH OIL 1 EACH CAPSULE.DR PO SCH (21:20)
[2021-02-21 02:14] VITALS: BP 153/77
[2021-02-21 06:00] VITALS: BP 143/82
--- NOTE | 2021-02-21 06:15 | NUR ---
Patient in room PCU 3012. I have received report from MARCELLA SHIPMAN and had the opportunity to ask questions and assume patient care. BEDSIDE REPORT COMPLETED. PT DENIES NEEDS. LOOKING FORWARD TO D/C TODAY. Addendum: 02/21/21 at 0657 by Dottie Pham RN Amended: Links added.
--- NOTE | 2021-02-21 06:22 | NUR ---
Problems reprioritized. Patient report given, questions answered & plan of care reviewed with Dottie SHIPMAN.
[2021-02-21 07:20] LABS: BASOPHILS % (AUTO) 0.7 % (0-1); EOSINOPHILS # (AUTO) 0.1 X10'3 (0-0.9); EOSINOPHILS % (AUTO) 1.8 % (0-6); HEMATOCRIT 44.4 % (42.0-52.0); HEMOGLOBIN 15.1 g/dl (14.0-17.9); LYMPHOCYTES # (AUTO) 1.1 X10'3 (1.1-4.8); LYMPHOCYTES % (AUTO) 21.3 % (21-51); MEAN CORPUSCULAR HEMOGLOBIN 31.6 PG (27.0-31.0); MEAN CORPUSCULAR VOLUME 92.9 FL (78-98); MEAN PLATELET VOLUME 10.2 FL (7.4-10.4); MONOCYTES # (AUTO) 0.4 X10'3 (0-0.9); MONOCYTES % (AUTO) 7.8 % (2-12); NEUTROPHILS # (AUTO) 3.6 X10'3 (1.8-7.7); NEUTROPHILS % (AUTO) 68.4 % (42-75); PLATELET COUNT 103 X10'3 (140-440); RED BLOOD COUNT 4.78 X10'6 (4.70-6.10); RED CELL DISTRIBUTION WIDTH 14.4 % (11.5-14.5); WHITE BLOOD COUNT 5.3 X10'3 (4.5-11.0)
[2021-02-21 07:51] LABS: ALANINE AMINOTRANSFERASE 36 U/L (12-78); ALBUMIN 3.2 G/DL (3.4-5.0); ALBUMIN/GLOBULIN RATIO 1.1 (1.1-1.5); ALKALINE PHOSPHATASE 68 IU/L (46-116); ANION GAP 11 (8-16); ASPARTATE AMINO TRANSFERASE 19 U/L (10-37); BILIRUBIN,TOTAL 0.9 MG/DL (0.1-1.0); BLOOD UREA NITROGEN 13 MG/DL (7-18); BUN/CREATININE RATIO 18.6 (5.4-32.0); CALCIUM 8.1 MG/DL (8.5-10.1); CHLORIDE 112 MMOL/L (99-107); GLUCOSE 97 MG/DL (70-104); MAGNESIUM 1.7 MG/DL (1.5-2.4); PHOSPHORUS 3.4 MG/DL (2.3-4.5); SODIUM 145 MMOL/L (135-145); TOTAL CARBON DIOXIDE 22.4 MMOL/L (24-32); TOTAL PROTEIN 6.2 G/DL (6.4-8.2); eGFR > 90 ML/MIN
[2021-02-21] MEDS ORDERED: warfarin 3mg tablet PO SCH (08:00)
[2021-02-21] MEDS: OMEGA-3/DHA/EPA/FISH OIL 1 EACH CAPSULE.DR PO SCH (08:02)
[2021-02-21] MEDS: atorvastatin 20mg tablet PO SCH (08:02)
[2021-02-21 08:10] VITALS: BP_SYST 156
[2021-02-21] MEDS: lisinopril 20mg tablet PO SCH (08:10)
[2021-02-21] MEDS ORDERED: NITR0.4T51 SL (09:40)
[2021-02-21] MEDS ORDERED: OMEG-166 PO (09:40)
[2021-02-21] MEDS ORDERED: LISI20TA28 PO (09:40)
--- NOTE | 2021-02-21 10:45 | NUR ---
PAGER ID: [phone] MESSAGE: [id number] BRITNEY. DO YOU WANT HIM TO TAKE COUMADIN 5 MG EACH NIGHT WITH AND ADDITIONAL 3 MG ON Wednesday AND WEDNESDAY, INCREASING THE AMOUNT TO 8 MGS ON THOSE DAYS. [place]
--- NOTE | 2021-02-21 11:18 | NUR ---
ALL WRITTEN AND VERBAL ORDERS FOR D/C GIVEN. ALL QUESTIONS ANSWERED. PT STATED HE HAD ALL BELONGS. 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 HOME WITH DAUGHTER. PT UNDERSTANDS TO GO DR RODRIGUEZ OFFICE NOW FOR EVENT MONITOR.
== END 2021-02-21 11:20 | disposition home or self-care (01) | DRG 282 ==
LOC: ER 10:39 → ED HOLD 18:09 → PCU 3S 20:10
PROVIDERS: ADMIT Family Medicine; ATTEND Family Medicine
PROC: 4A02XM4 Measurement of Cardiac Total Activity, External Approach (ICD-10-PCS; principal; 2021-02-20)
PROC: 3E073KZ Introduction of Other Diagnostic Substance into Coronary Artery, Percutaneous Approach (ICD-10-PCS; 2021-02-20)
DX: I48.0 Paroxysmal atrial fibrillation (principal); I21.A1 Myocardial infarction type 2; I11.0 Hypertensive heart disease with heart failure; I25.10 Atherosclerotic heart disease of native coronary artery without angina pectoris; E78.5 Hyperlipidemia, unspecified; R55 Syncope and collapse; I50.9 Heart failure, unspecified; Z82.49 Family history of ischemic heart disease and other diseases of the circulatory system; Z79.01 Long term (current) use of anticoagulants; Z82.3 Family history of stroke; Z87.891 Personal history of nicotine dependence; Z90.49 Acquired absence of other specified parts of digestive tract; Z79.899 Other long term (current) drug therapy
CPT/HCPCS: 36415; 71045; 78452; 80053; 80061; 81003; 83036; 83735; 83880; 84100; 84443; 84484; 85025; 85610; 85730; 87081; 93005; 93017; 96360; 99285; A9500; G0378; J1644; J2785; J7030

== ENCOUNTER 2021-05-09 15:22 | Emergency (ER) | payer OTHER ==
[~2021-05-09] VITALS: Ht 177.8 cm; Wt 95.5 kg
[~2021-05-09 15:22] MED LIST changes: -BENA40TA8 PO; -FLEC100T2 PO; +LISI20TA28 PO; +NITR0.4T51 SL; +OMEG-166 PO; -OMEG1CAP13 PO; -WARF-55 PO; +WARF3TAB56 PO; +WARF6TAB49 PO
[2021-05-09 15:40] VITALS: BP 142/67
[2021-05-09] MEDS ORDERED: LIDOcaine 1% W/epiNEPHrine 1:200,000 10ml vial IJ ONE (18:35)
[2021-05-09] MEDS ORDERED: LIDOcaine 1% w/epiNEPHrine 1:200,000 30ml vial IJ ONE (18:50)
[2021-05-09] MEDS ORDERED: CEPH500C2 PO (18:56)
[2021-05-09] MEDS ORDERED: DOXY100C76 PO (18:56)
[2021-05-09] MEDS ORDERED: PRED10TA23 PO (18:56)
[2021-05-09] MEDS ORDERED: DOXYCYCLINE 100MG CAPSULE PO STA (18:59)
[2021-05-09] MEDS ORDERED: predniSONE 20 mg tablet PO ONE (19:00)
[2021-05-09] MEDS ORDERED: cephalexin 250mg capsule PO ONE (19:00)
[2021-05-09] MEDS ORDERED: bacitracin 15gm ointment TP ONE (19:15)
== END 2021-05-09 19:33 | disposition home or self-care (01) ==
LOC: ER 15:23
DX: L03.114 Cellulitis of left upper limb (principal); L25.9 Unspecified contact dermatitis, unspecified cause; I48.91 Unspecified atrial fibrillation; I11.0 Hypertensive heart disease with heart failure; I50.9 Heart failure, unspecified; Z90.49 Acquired absence of other specified parts of digestive tract; Z98.890 Other specified postprocedural states; Z79.2 Long term (current) use of antibiotics; Z79.899 Other long term (current) drug therapy
CPT/HCPCS: 99284; J7512

== ENCOUNTER 2023-06-17 11:28 | Emergency (ER) | payer OTHER ==
[~2023-06-17] VITALS: Ht 177.8 cm; Wt 97.3 kg
[2023-06-17] MEDS ORDERED: sotalol HCl 40mg (1/2 tablet) PO ONE (11:50)
[2023-06-17] MEDS ORDERED: potassium Cl 20 mEq SR tablet PO STA (11:50)
[2023-06-17] MEDS ORDERED: diltiazem 5mg/ml 5ml inj. IV ONE (11:50)
[2023-06-17] MEDS ORDERED: LORazepam 2 mg/ml vial IV ONE (11:50)
[2023-06-17] MEDS ORDERED: magnesium 2GM in 50ml NS 50 ML IV ONE (11:50)
[2023-06-17 12:26] LABS: BASOPHILS # (AUTO) 0.1 X10'3 (0-0.2); BASOPHILS % (AUTO) 0.5 % (0-1); EOSINOPHILS % (AUTO) 0.1 % (0-6); HEMATOCRIT 46.5 % (42.0-52.0); LYMPHOCYTES # (AUTO) 1.2 X10'3 (1.1-4.8); MEAN CORPUSCULAR HEMOGLOBIN 32.5 PG (27.0-31.0); MEAN CORPUSCULAR HGB CONC 34.4 g/dL (33.0-36.5); MEAN CORPUSCULAR VOLUME 94.5 FL (78-98); MEAN PLATELET VOLUME 10.9 FL (7.4-10.4); MONOCYTES % (AUTO) 6.5 % (2-12); NEUTROPHILS # (AUTO) 13.1 X10'3 (1.8-7.7); NEUTROPHILS % (AUTO) 84.9 % (42-75); PLATELET COUNT 130 X10'3 (140-440); RED BLOOD COUNT 4.92 X10'6 (4.70-6.10); RED CELL DISTRIBUTION WIDTH 13.7 % (11.5-14.5); WHITE BLOOD COUNT 15.4 X10'3 (4.5-11.0)
[2023-06-17 12:35] LABS: ALANINE AMINOTRANSFERASE 74 U/L (12-78); ALBUMIN 3.9 G/DL (3.4-5.0); ALBUMIN/GLOBULIN RATIO 0.9 (1.1-1.5); ALKALINE PHOSPHATASE 106 IU/L (46-116); ANION GAP 9 (8-16); ASPARTATE AMINO TRANSFERASE 55 U/L (10-37); BILIRUBIN,TOTAL 1.3 MG/DL (0.1-1.0); BLOOD UREA NITROGEN 14 MG/DL (7-18); BUN/CREATININE RATIO 16.5 (10.0-20.0); CALCIUM 9.4 MG/DL (8.5-10.1); CHLORIDE 99 MMOL/L (99-107); CREATININE 0.85 MG/DL (0.60-1.10); GLUCOSE 180 MG/DL (70-104); POTASSIUM 3.9 MMOL/L (3.5-5.1); SODIUM 133 MMOL/L (135-145); TOTAL PROTEIN 8.1 G/DL (6.4-8.2); eCRCL 81 ML/MIN; eGFR 89 ML/MIN
[2023-06-17 12:43] LABS: PRO BRAIN NATRIURETIC PEPTIDE 612 PG/ML (0-125)
[2023-06-17] MEDS ORDERED: etomidate 2mg/ml inj. IV ONE (13:05)
[2023-06-17 14:25] VITALS: BP 116/76; PULSE 60; RESP 18; TEMP 99.3; O2SAT 98
== END 2023-06-17 14:40 | disposition home or self-care (01) ==
LOC: ER 11:28
DX: I48.91 Unspecified atrial fibrillation (principal); I11.0 Hypertensive heart disease with heart failure; I50.9 Heart failure, unspecified; Z79.899 Other long term (current) drug therapy
CPT/HCPCS: 36415; 71045; 80053; 83880; 84484; 85025; 92960; 93005; 96365; 96375; 99152; 99291; J2060; J3475; J3490; 94760

== ENCOUNTER 2023-06-20 08:19 | Emergency (ER) | payer OTHER ==
[~2023-06-20] VITALS: Ht 177.8 cm; Wt 96.0 kg
[2023-06-20 08:28] VITALS: BP 125/72; PULSE 54; RESP 16; O2SAT 98
[2023-06-20 09:50] LABS: BASOPHILS # (AUTO) 0.1 X10'3 (0-0.2); BASOPHILS % (AUTO) 0.8 % (0-1); EOSINOPHILS # (AUTO) 0.1 X10'3 (0-0.9); EOSINOPHILS % (AUTO) 0.8 % (0-6); HEMATOCRIT 43.8 % (42.0-52.0); HEMOGLOBIN 14.9 g/dl (14.0-17.9); LYMPHOCYTES # (AUTO) 1.6 X10'3 (1.1-4.8); MEAN CORPUSCULAR HGB CONC 33.9 g/dL (33.0-36.5); MEAN CORPUSCULAR VOLUME 94.5 FL (78-98); MEAN PLATELET VOLUME 10.2 FL (7.4-10.4); MONOCYTES # (AUTO) 0.6 X10'3 (0-0.9); MONOCYTES % (AUTO) 7.8 % (2-12); NEUTROPHILS # (AUTO) 5.2 X10'3 (1.8-7.7); NEUTROPHILS % (AUTO) 69.6 % (42-75); PLATELET COUNT 138 X10'3 (140-440); RED BLOOD COUNT 4.64 X10'6 (4.70-6.10); RED CELL DISTRIBUTION WIDTH 14.1 % (11.5-14.5); WHITE BLOOD COUNT 7.4 X10'3 (4.5-11.0)
[2023-06-20 10:00] LABS: APTT 43 SECONDS (22-32); INR 2.2 INR; PROTHROMBIN TIME 22.5 SECONDS (9.0-12.0)
[2023-06-20 10:01] LABS: ALANINE AMINOTRANSFERASE 69 U/L (12-78); ALBUMIN 3.6 G/DL (3.4-5.0); ALBUMIN/GLOBULIN RATIO 0.8 (1.1-1.5); ALKALINE PHOSPHATASE 103 IU/L (46-116); ANION GAP 9 (8-16); ASPARTATE AMINO TRANSFERASE 34 U/L (10-37); BILIRUBIN,TOTAL 1.3 MG/DL (0.1-1.0); BLOOD UREA NITROGEN 14 MG/DL (7-18); BUN/CREATININE RATIO 18.4 (10.0-20.0); CALCIUM 9.3 MG/DL (8.5-10.1); CHLORIDE 99 MMOL/L (99-107); CREATININE 0.76 MG/DL (0.60-1.10); GLUCOSE 199 MG/DL (70-104); POTASSIUM 4.2 MMOL/L (3.5-5.1); SODIUM 133 MMOL/L (135-145); TOTAL CARBON DIOXIDE 25.5 MMOL/L (24-32); TOTAL PROTEIN 7.9 G/DL (6.4-8.2); eCRCL 91 ML/MIN; eGFR > 90 ML/MIN
[2023-06-20] MEDS ORDERED: CLIN-97 PO (11:17)
== END 2023-06-20 11:43 | disposition home or self-care (01) ==
LOC: ER 08:19
DX: L03.116 Cellulitis of left lower limb (principal); R10.32 Left lower quadrant pain; I48.91 Unspecified atrial fibrillation; I11.0 Hypertensive heart disease with heart failure; Z79.2 Long term (current) use of antibiotics; Z79.899 Other long term (current) drug therapy; Z79.01 Long term (current) use of anticoagulants
CPT/HCPCS: 36415; 71045; 80053; 84145; 84484; 85025; 85610; 85730; 93005; 93971; 99285

== ENCOUNTER 2025-06-19 09:08 | Day surgery (SDC) | payer MEDICARE, MEDICAID ==
[2025-06-15 09:37] LABS: MEAN PLATELET VOLUME 8.6 FL (7.4-10.4); RED CELL DISTRIBUTION WIDTH 18.1 % (11.5-14.5)
[2025-06-15 09:53] LABS: APTT 36 SECONDS (22-32); INR 2.6 INR
[2025-06-15 09:54] LABS: CHOL/HDL RATIO 2.9 (0.00-4.99); CREATININE 0.99 MG/DL (0.60-1.10); LDL CHOLESTEROL 54 MG/DL (50-100); TOTAL CARBON DIOXIDE 24.9 MMOL/L (24-32); eGFR 74 ML/MIN
[~2025-06-19] VITALS: Ht 177.8 cm; Wt 90.4 kg
[~2025-06-19 09:08] MED LIST changes: +AMIO200T73 PO; +AMIO200T76 PO; +ASPI81TA53 PO; +FURO-150 PO; +HYDR-3972 PO; +LAN0.125T PO; -LISI20TA28 PO; +METF-1203 PO; +METO-395 PO; -NITR0.4T51 SL; -OMEG-166 PO; +OMEG12002 PO; +WARF-55 PO; -WARF3TAB56 PO; -WARF6TAB49 PO
[2025-06-19] MEDS ORDERED: METF-436 PO (09:38)
[2025-06-19] MEDS ORDERED: LOSA25TA41 PO (09:38)
[2025-06-19] MEDS ORDERED: AMIO200T72 PO (09:38)
[2025-06-19] MEDS ORDERED: OMEG-31 PO (09:38)
[2025-06-19] MEDS ORDERED: LAN0.125T PO (09:40)
[2025-06-19] MEDS ORDERED: fentaNYL/PF 50MCG/1 ML 2ML syringe IV ONE (09:45)
[2025-06-19] MEDS ORDERED: normal saline 1000ml 1,000 ML IV SCH (09:45)
[2025-06-19] MEDS ORDERED: MIDAZolam 1mg/ml 10ml vial IV ONE (09:45)
[2025-06-19 10:30] VITALS: RESP 15; O2SAT 97
[2025-06-19] MEDS ORDERED: fentaNYL/PF 50MCG/1 ML 2ML syringe ONE (12:42)
[2025-06-19] MEDS ORDERED: midazolam 1 mg/ML 2ml injection ONE (12:42)
[2025-06-19] MEDS ORDERED: atropine 0.1mg/ml 10ml syringe ONE (12:42)
[2025-06-19] MEDS ORDERED: amiodarone 50MG/ML inj IV ONE (12:42)
[2025-06-19 13:20] VITALS: BP 114/70; PULSE 46; RESP 14; O2SAT 93
[2025-06-19 13:30] VITALS: BP 112/67; PULSE 47; RESP 13; O2SAT 94
--- NOTE | 2025-06-19 13:30 | ELECTROCARDIOGRAPH REPORT ---
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 MAEGAN Pop Measurements Intervals [place] Rate: 46 P: 54 MT: 238 QRS: 119 QRSD: 113 T: 147 QT: 466 QTc: 408 Interpretive Statements Sinus bradycardia Prolonged MT interval Probable anterolateral infarct, age indeterm Baseline wander in lead(s) V3 Electronically Signed On 06-20-2025 13:17:[address] MAEGAN Pop Please click the below link to view image of tracing.
[2025-06-19 13:40] VITALS: BP 109/69; PULSE 48; RESP 15; O2SAT 93
[2025-06-19 13:50] VITALS: BP 112/75; PULSE 49; RESP 17; O2SAT 93
[2025-06-19 14:00] VITALS: BP 109/72; PULSE 48; RESP 16; O2SAT 93
== END 2025-06-19 14:30 | disposition home or self-care (01) ==
LOC: SSTAY O 09:08
PROVIDERS: ATTEND Student in an Organized Health Care Education/Training Program
DX: I48.91 Unspecified atrial fibrillation (principal); I44.0 Atrioventricular block, first degree; E11.9 Type 2 diabetes mellitus without complications; E78.5 Hyperlipidemia, unspecified; G47.33 Obstructive sleep apnea (adult) (pediatric); I25.10 Atherosclerotic heart disease of native coronary artery without angina pectoris; I11.0 Hypertensive heart disease with heart failure; I50.9 Heart failure, unspecified; Z80.1 Family history of malignant neoplasm of trachea, bronchus and lung; Z82.3 Family history of stroke; Z82.49 Family history of ischemic heart disease and other diseases of the circulatory system; Z85.828 Personal history of other malignant neoplasm of skin; Z87.891 Personal history of nicotine dependence; Z95.1 Presence of aortocoronary bypass graft; Z79.01 Long term (current) use of anticoagulants; Z98.52 Vasectomy status; Z79.84 Long term (current) use of oral hypoglycemic drugs
CPT/HCPCS: 36415; 80048; 80061; 85025; 85610; 85730; 92960; 93005; J2250; J3010; J7030; 99152; J0282; J0461